=== PATIENT | female | born 1990 | race Hispanic/Latino ===

== ENCOUNTER 2020-11-27 21:02 | Emergency (ER) | payer BC ==
[2020-11-27] MEDS ORDERED: HYOSCYAMINE SULFATE 0.125 MG TAB.SUBL SL ONE (21:30)
[2020-11-27] MEDS ORDERED: SUCRALFATE 1 GM TABLET ONE (21:30)
[2020-11-27] MEDS ORDERED: ONDANSETRON ODT 4 MG TAB ONE (21:31)
[2020-11-27 21:35] LABS: APPEARANCE,URINE Clear (CLEAR); BILIRUBIN,URINE Negative (NEGATIVE); COLOR,URINE Yellow (YELLOW); GLUCOSE, URINE (UA) Negative (NEGATIVE); KETONES,URINE Negative (NEGATIVE); LEUKOCYTE ESTERASE ,URINE Negative (NEGATIVE); NITRATE,URINE Negative (NEGATIVE); OCCULT BLOOD,URINE Negative (NEGATIVE); PH,URINE 7.5 (5.0-8.0); PROTEIN,URINE Negative (NEGATIVE)
[2020-11-27 21:37] LABS: HCG,QUAL RESULT NEGATIVE (NEGATIVE)
== END 2020-11-27 22:33 | disposition home or self-care (01) ==
LOC: EDH 21:02
DX: R10.13 Epigastric pain (principal); R03.0 Elevated blood-pressure reading, without diagnosis of hypertension; R11.0 Nausea
CPT/HCPCS: 81003; 81025

== ENCOUNTER 2021-10-21 10:15 | Emergency (ER) | payer BC, OTHER ==
[~2021-10-21] VITALS: Ht 147.3 cm; Wt 79.4 kg
[2021-10-21 11:22] LABS: APPEARANCE,URINE CLOUDY (CLEAR); BILIRUBIN,URINE NEGATIVE (NEGATIVE); COLOR,URINE YELLOW (YELLOW); GLUCOSE, URINE (UA) NEGATIVE (NEGATIVE); KETONES,URINE NEGATIVE (NEGATIVE); LEUKOCYTE ESTERASE ,URINE MODERATE (NEGATIVE); NITRATE,URINE NEGATIVE (NEGATIVE); OCCULT BLOOD,URINE LARGE (NEGATIVE); PH,URINE 7.5 (5.0-8.0); PROTEIN,URINE NEGATIVE (NEGATIVE); UROBILINOGEN,URINE 0.2 mg/dL (0.2-1.0)
[2021-10-21 11:25] LABS: HCG,QUAL RESULT NEGATIVE (NEGATIVE)
[2021-10-21 11:36] LABS: BACTERIA,URINE Rare /HPF (None Seen); SQUAMOUS EPITHELIAL CELL,UR Rare /HPF (0-2); WBC,URINE >100 /HPF (0-1)
[2021-10-21] MEDS ORDERED: LEVOFLOXACIN 500 MG TABLET PO SCH (12:00)
[2021-10-21] MEDS ORDERED: CIPR-278 PO (12:02)
[2021-10-21 12:17] VITALS: BP 122/83
== END 2021-10-21 13:09 | disposition home or self-care (01) ==
LOC: EDH 10:15
DX: N39.0 Urinary tract infection, site not specified (principal); R03.0 Elevated blood-pressure reading, without diagnosis of hypertension
CPT/HCPCS: 81001; 81025; 87088

== ENCOUNTER 2022-04-07 10:23 | Emergency (ER) | payer BC, OTHER ==
[~2022-04-07] VITALS: Ht 147.3 cm; Wt 79.4 kg
[~2022-04-07 10:23] MED LIST: CIPR-278 PO
[2022-04-07 11:13] LABS: BASOPHILS % (AUTO) 0.4 % (0.0-5.0); EOSINOPHILS % (AUTO) 0.9 % (0.0-8.0); HEMATOCRIT 40.5 % (36-48); LYMPHOCYTES % (AUTO) 17.6 % (21.0-51.0); MEAN CORPUSCULAR HEMOGLOBIN 31.6 pg (27.0-33.0); MEAN CORPUSCULAR HGB CONC 34.8 g/dL (32.0-36.0); MEAN CORPUSCULAR VOLUME 90.8 fL (79-99); MONOCYTES % (AUTO) 8.9 % (3.0-13.0); NEUTROPHILS % (AUTO) 71.8 % (40.0-77.0); PLATELET COUNT (AUTO) 286 K/uL (130-400); RED BLOOD CELL COUNT(AUTO) 4.46 MIL/uL (4.00-5.50); RED CELL DISTRIBUTION WIDTH 12.3 % (11.0-15.5); WHITE BLOOD COUNT (AUTO) 7.7 K/uL (4.8-10.8)
[2022-04-07 11:15] LABS: APPEARANCE,URINE CLEAR (CLEAR); BILIRUBIN,URINE NEGATIVE (NEGATIVE); COLOR,URINE YELLOW (YELLOW); GLUCOSE, URINE (UA) NEGATIVE (NEGATIVE); KETONES,URINE NEGATIVE (NEGATIVE); LEUKOCYTE ESTERASE ,URINE NEGATIVE Leu/uL (NEGATIVE); NITRATE,URINE NEGATIVE (NEGATIVE); OCCULT BLOOD,URINE LARGE (NEGATIVE); PH,URINE 6.5 (5.0-8.0); PROTEIN,URINE 20 mg/dL (NEGATIVE)
[2022-04-07 11:18] LABS: MUCUS,URINE RARE LPF (None Seen); SQUAMOUS EPITHELIAL CELL,UR RARE /HPF (0-2)
[2022-04-07 12:01] LABS: CREATININE 0.8 mg/dL (0.5-1.5); POTASSIUM 4.3 mmol/L (3.5-5.1)
[2022-04-07 12:06] LABS: ALBUMIN 3.7 g/dL (3.5-5.0); TOTAL PROTEIN, SERUM 8.1 g/dL (6.0-8.3)
[2022-04-07 12:39] LABS: HCG,QUALITATIVE URINE NEGATIVE (NEGATIVE)
[2022-04-07 13:46] VITALS: BP 123/87
[2022-04-07] MEDS: ONDANSETRON 4MG INJ ONE (13:46)
[2022-04-07] MEDS: MORPHINE 4 MG SYG ONE (13:46)
[2022-04-07] MEDS ORDERED: IBUP-2070 PO (14:06)
[2022-04-07] MEDS: ONDANSETRON 4MG INJ IVP ONE (14:17)
[2022-04-07] MEDS: MORPHINE 4 MG SYG IVP ONE (14:17)
== END 2022-04-07 14:30 | disposition home or self-care (01) ==
LOC: EDH 10:23
DX: G43.909 Migraine, unspecified, not intractable, without status migrainosus (principal)
CPT/HCPCS: 99284; 96374; 70450; 96375; 80053; 85025; 81001; 81025; 36415; J2405; J2270